=== PATIENT | male | born 1970 | race Caucasian/White ===

== ENCOUNTER 2018-02-03 15:22 | Emergency (ER) | payer MEDICAID ==
[2018-02-03] MEDS: IBUPROFEN 600 MG TAB PO (16:30)
== END 2018-02-03 17:25 | disposition home or self-care (01) ==
LOC: FTE 15:22
DX: T16.1XXA Foreign body in right ear, initial encounter (principal); H60.90 Unspecified otitis externa, unspecified ear; F17.210 Nicotine dependence, cigarettes, uncomplicated; X58.XXXA Exposure to other specified factors, initial encounter; Y92.9 Unspecified place or not applicable
CPT/HCPCS: 69200; 99283-25